=== PATIENT | male | born 1950 | race Caucasian/White ===

== ENCOUNTER 2016-09-07 12:12 | Day surgery (SDC) | payer OTHER ==
[~2016-09-07] VITALS: Ht 172.7 cm; Wt 79.4 kg
[~2016-09-07 12:12] MED LIST: ASPIR 8181 M1 PO; LISINOPRIL5 MG PO; METFORMIN HCL500 M4 PO; VOLTAREN75 MG PO
[2016-09-07 12:34] VITALS: BP 161/70
[2016-09-07 12:42] LABS: POINT-OF-CARE METER ID UU14174212
[2016-09-07] MEDS ORDERED: PERCOCET 5/31 TABLET PO (14:23)
[2016-09-07 14:39] LABS: POINT-OF-CARE METER ID UU13113675; POINT-OF-CARE USER ID 515036437
[2016-09-07 14:55] VITALS: BP 151/83
[2016-09-07 15:48] VITALS: BP 136/82
== END 2016-09-07 16:12 | disposition home or self-care (01) ==
LOC: SDC 12:12
PROVIDERS: Surgery
DX: C01 Malignant neoplasm of base of tongue (principal); R59.0 Localized enlarged lymph nodes; E11.9 Type 2 diabetes mellitus without complications; I10 Essential (primary) hypertension; Z79.84 Long term (current) use of oral hypoglycemic drugs; Z79.82 Long term (current) use of aspirin; Z80.8 Family history of malignant neoplasm of other organs or systems
CPT/HCPCS: 82948; 88305; J0690; J2250; J3010; S0020

== ENCOUNTER → 2016-09-28 | Outpatient (CLI) | payer OTHER ==
[~2016-09-28] MED LIST changes: +PERCOCET 5/31 TABLET PO
== END | disposition home or self-care (01) ==
DX: R13.10 Dysphagia, unspecified (principal); C76.0 Malignant neoplasm of head, face and neck
CPT/HCPCS: 92611 GN; G8996 GN; G8997 GN; G8998 GN

== ENCOUNTER → 2017-04-11 | Outpatient (CLI) | payer OTHER ==
[~2017-04-11] MED LIST changes: +LO-DOSE ASPIRIN81 M2 PO
[2017-04-11 11:43] LABS: POINT-OF-CARE METER ID UU14107333
[2017-04-11 12:37] LABS: POINT-OF-CARE METER ID UU13113819
== END | disposition home or self-care (01) ==
LOC: AMB 11:06
PROVIDERS: Internal Medicine Gastroenterology
DX: K22.70 Barrett's esophagus without dysplasia (principal); K22.2 Esophageal obstruction; K21.9 Gastro-esophageal reflux disease without esophagitis; C83.10 Mantle cell lymphoma, unspecified site; Z93.1 Gastrostomy status; C01 Malignant neoplasm of base of tongue; K11.7 Disturbances of salivary secretion; R63.4 Abnormal weight loss; Z92.3 Personal history of irradiation; I10 Essential (primary) hypertension; E11.9 Type 2 diabetes mellitus without complications; Z80.8 Family history of malignant neoplasm of other organs or systems; Z79.84 Long term (current) use of oral hypoglycemic drugs; Z79.82 Long term (current) use of aspirin
CPT/HCPCS: 82948; 88305; J3010

== ENCOUNTER → 2017-05-03 | Outpatient (CLI) | payer OTHER | END | disposition home or self-care (01) | DX: R13.12 Dysphagia, oropharyngeal phase (principal); Z85.810 Personal history of malignant neoplasm of tongue; Z85.72 Personal history of non-Hodgkin lymphomas | CPT/HCPCS: 92611 GN ==